=== PATIENT | male | born 1970 | race Caucasian/White ===

== ENCOUNTER 2023-11-07 14:47 | Outpatient (CLI) | payer OTHER | END 2023-11-07 14:48 | disposition home or self-care (01) | LOC: CSHCT 14:47 | PROVIDERS: ATTEND Internal Medicine | DX: E66.2 Morbid (severe) obesity with alveolar hypoventilation (principal); Z12.2 Encounter for screening for malignant neoplasm of respiratory organs; Z87.891 Personal history of nicotine dependence; J44.9 Chronic obstructive pulmonary disease, unspecified; R91.8 Other nonspecific abnormal finding of lung field | CPT/HCPCS: 71271; 94060; 94664; 94729; 94760 ==